=== PATIENT | female | born 1975 ===

== ENCOUNTER 2017-01-28 09:34 | Emergency (ER) | payer MEDICAID ==
[2017-01-28 09:42] VITALS: TEMP 97.8
[2017-01-28] MEDS ORDERED: Lidocaine 1% w Epi 1:100,000 Inj INJ STA (10:00)
--- NOTE | 2017-01-28 10:03 | C.PDOC ---
History Of Present Illness 41 y/o female presents to the ED with complaints of worsening mass and pain to right buttock x4 days. Pt reports new onset discharge from the area, has had "lump" in the area "for a while" but pain onset 4 days ago. (+) foul smelling discharge. Denies fever, chills, or any other associated symptoms. WORSENING MASS, PAIN AND NEW ONSET DC R BUTTOCK X 4 DAYS. PS W "LUMP" IN AREA "FOR A WHILE" BUT ONLY STARTED HURTING X 4 DAYS. +FOUL SMELLING DC. NO FEVER, OTHER ASSOC SX EXAM NONTOXIC NAD SKIN R BUTTOCK +ABSCESS LOWER MEDIAL ASPECT. NO PERIRECTAL, PILIONIDAL INVOLVEMENT. +LOCAL TEND W PERSIST FLUCTUANCE, LOCAL INDURATION. +MILD LOCAL ERYTHEMA REMAINDE RNEG Time Seen by Provider: 01/28/17 09:51 Chief Complaint (Nursing): Abnormal Skin Integrity History Per: Patient History/Exam Limitations: no limitations Onset/Duration Of Symptoms: Days Current Symptoms Are (Timing): Worse Quality Of Symptoms: Painful, Draining Severity: Moderate Recent travel outside of the [place]: No Past Medical History Reviewed: Historical Data, Nursing Documentation, Vital Signs Vital Signs: Last Vital Signs Temp 97.8 F 01/28/17 09:40 Pulse 83 01/28/17 09:40 Resp 20 01/28/17 09:40 BP 130/88 01/28/17 09:40 Pulse Ox 100 01/28/17 10:25 - Medical History PMH: Asthma, Depression Family History: States: Unknown Family Hx - Social History Hx Tobacco Use: No Hx Alcohol Use: No Hx Substance Use: No - Immunization History Hx Tetanus Toxoid Vaccination: No Hx Influenza Vaccination: No Hx Pneumococcal Vaccination: No Review Of Systems Constitutional: Negative for: Fever, Chills Skin: Positive for: Other (mass, pain and discharge from right buttock) Physical Exam - Physical Exam Appears: Non-toxic, No Acute Distress Skin: Warm, Dry, No Rash, Other (Right buttock (+) abscess to lower medial aspect. No perirectal, pilonidal involvement. (+) local tenderness with persistent fluctuance and local induration. (+) mild local erythema) Extremity: Normal ROM Extremity: Bilateral: Atraumatic Neurological/Psych: Oriented x3, Normal Speech, Normal Cognition ED Course And Treatment O2 Sat by Pulse Oximetry: 100 (room air) Pulse Ox Interpretation: Normal - Incision & Drainage Of Abscess Anesthesia: Lidocaine 2%, With Epi Prep Used: Betadine Procedure: Incised W/Scalpel Blade#: (11), Drained Pus, Irrigated Cavity W/ Saline, Probed To Break Up Loculations, Packed W/Gauze Disposition Counseled Patient/Family Regarding: Diagnosis, Need For Followup - Disposition Referrals: [facility] [Provider Group] Disposition: HOME/ ROUTINE Disposition Time: 10:34 Condition: GOOD Additional Instructions: RETURN 2 DAYS FOR WOUND REEVAL, PACKING CHANGE KEEP DRY MOTRIN/TYLENOL DIRECTED FOR PAIN NEEDED Instructions: Abscess Incision and Drainage (ED) Forms: [facility] (Wolof), Work Excuse - Clinical Impression Clinical Impression: Abscess - Scribe Statement The provider has reviewed the documentation as recorded by the sEteban Starr Provider Attestation: All medical record entries made by the Sukhwinderibbritney were at my direction and personally dictated by me. I have reviewed the chart and agree that the record accurately reflects my personal performance of the history, physical exam, medical decision making, and the department course for this patient. I have also personally directed, reviewed, and agree with the discharge instructions and disposition.
[2017-01-28] MEDS ORDERED: Lidocaine 2% w Epi 1:100,000 Inj IJ ONE (10:08)
[2017-01-28 11:17] VITALS: BP 118/70; PULSE 62; RESP 18; O2SAT 99
== END 2017-01-28 10:50 | disposition home or self-care (01) ==
LOC: C.ER 09:34
DX: L02.31 Cutaneous abscess of buttock (principal)
CPT/HCPCS: 10060; 96372; 99285; J1885

== ENCOUNTER 2017-01-30 08:01 | Emergency (ER) | payer MEDICAID ==
[2017-01-30 08:08] VITALS: BP 138/88; PULSE 71; RESP 16; TEMP 97.7; O2SAT 97
--- NOTE | 2017-01-30 08:52 | C.PDOC ---
History Of Present Illness 41-year-old female, presents to the emergency department for packing removal. Patient states she had an incision and drainage to left buttock a few days ago. Deneis any fevers, new symptoms. Time Seen by Provider: 01/30/17 08:08 Chief Complaint (Nursing): Abnormal Skin Integrity History Per: Patient History/Exam Limitations: no limitations Severity: Mild Past Medical History Reviewed: Historical Data, Nursing Documentation, Vital Signs Vital Signs: Last Vital Signs Temp 97.7 F 01/30/17 08:04 Pulse 71 01/30/17 08:04 Resp 16 01/30/17 08:04 BP 138/88 01/30/17 08:04 Pulse Ox 97 01/30/17 10:17 - Medical History PMH: Asthma, Depression Surgical History: No Surg Hx Family History: States: Unknown Family Hx - Social History Hx Tobacco Use: No Hx Alcohol Use: No Hx Substance Use: No - Immunization History Hx Tetanus Toxoid Vaccination: No Hx Influenza Vaccination: No Hx Pneumococcal Vaccination: No Review Of Systems Except As Marked, All Systems Reviewed And Found Negative. Constitutional: Negative for: Fever Respiratory: Negative for: Shortness of Breath Gastrointestinal: Negative for: Vomiting Neurological: Negative for: Weakness, Numbness Physical Exam - Physical Exam Appears: Non-toxic, No Acute Distress Skin: Warm, Dry, Other (ID site to left buttock, packing in place, no erythema, no drainage) Nose: Normal Oral Mucosa: Moist Lips: Normal Appearing Neck: Normal ROM Chest: Symmetrical Cardiovascular: Rhythm Regular, No Murmur Respiratory: Normal Breath Sounds, No Accessory Muscle Use Extremity: Normal ROM Neurological/Psych: Oriented x3 ED Course And Treatment O2 Sat by Pulse Oximetry: 97 Disposition Counseled Patient/Family Regarding: Studies Performed, Diagnosis, Need For Followup - Disposition Referrals: [facility] [Outside] [facility] [Outside] Disposition: HOME/ ROUTINE Disposition Time: 09:00 Condition: GOOD Instructions: Abscess (ED) Forms: [facility] (Micronesian) - POA Present On Arrival: None - Clinical Impression Clinical Impression: Wound check, abscess - Scribe Statement The provider has reviewed the documentation as recorded by the Scribe (Booker Gamboa) All medical record entries made by the Scribe were at my direction and personally dictated by me. I have reviewed the chart and agree that the record accurately reflects my personal performance of the history, physical exam, medical decision making, and the department course for this patient. I have also personally directed, reviewed, and agree with the discharge instructions and disposition.
== END 2017-01-30 09:10 | disposition home or self-care (01) ==
LOC: C.ER 08:01
DX: Z48.00 Encounter for change or removal of nonsurgical wound dressing (principal)

== ENCOUNTER 2017-08-02 14:13 | Emergency (ER) | payer MEDICAID, OTHER ==
[2017-08-02 15:43] VITALS: BMI 38.2
[2017-08-02 15:49] VITALS: RESP 18
[2017-08-02] MEDS ORDERED: Albuterol-Ipratrop 3 mg / 0.5 (3 ml) UD IH STA ×2 (16:32→16:35)
[2017-08-02] MEDS ORDERED: Albuterol-Ipratrop 3 mg / 0.5 (3 ml) UD ONE (16:54)
--- NOTE | 2017-08-02 17:04 | RAD ---
HISTORY: Cough COMPARISON: Chest x-ray performed 02/11/11 TECHNIQUE: Chest PA and lateral FINDINGS: Examination limited by habitus. LUNGS: Patchy left lower lobe atelectasis or infiltrate. Please note that chest x-ray has limited sensitivity for the detection of pulmonary masses. PLEURA: No significant pleural effusion identified. No definite pneumothorax . CARDIOVASCULAR: The cardiomediastinal silhouette appears within normal limits of size. OSSEOUS STRUCTURES: No acute osseous abnormality identified. VISUALIZED UPPER ABDOMEN: Unremarkable. OTHER FINDINGS: None. IMPRESSION: Patchy left lower lobe atelectasis or infiltrate.
--- NOTE | 2017-08-02 17:07 | C.PDOC ---
History Of Present Illness 41 yo female w/PMHx of asthma come in for evaluation of cold sx for past 3-4 days associated with nasal congestion, runny nose, productive cough with clear sputum. Pt reports, since yesterday noted asthma sx exacerbation with chest tightness, wheezing. Pt reports, " took Albuterol Neb tx at work and developed itchy rash to my arm". Pt sts, took Benadryl [employer] with mild improvement. Pt also reports, was taking OTC cold medication. Otherwise, pt denies high fever, chills , headache, dizziness. drooling, throat tightness or swelling, CP, palpitation, abd. pain, N/V/D, back pain, denies previous hx of allergy. Ambulate to Ed for evaluation, not in resp. distress. Time Seen by Provider: 08/02/17 16:13 Chief Complaint (Nursing): Allergic Reaction History Per: Patient Past Medical History Reviewed: Historical Data, Nursing Documentation, Vital Signs Vital Signs: Last Vital Signs Temp 97.8 F 08/02/17 20:22 Pulse 66 08/02/17 20:22 Resp 18 08/02/17 20:22 BP 135/76 08/02/17 20:22 Pulse Ox 98 08/02/17 21:30 - Medical History PMH: Asthma, Depression Family History: States: Unknown Family Hx - Social History Hx Tobacco Use: No Hx Alcohol Use: Yes Hx Substance Use: No - Immunization History Hx Tetanus Toxoid Vaccination: No Hx Influenza Vaccination: No Hx Pneumococcal Vaccination: No Review Of Systems Except As Marked, All Systems Reviewed And Found Negative. Constitutional: Negative for: Fever, Chills ENT: Positive for: Nose Discharge, Nose Congestion. Negative for: Ear Discharge , Mouth Swelling, Throat Pain, Throat Swelling Cardiovascular: Negative for: Chest Pain, Palpitations Respiratory: Positive for: Cough, Sputum, Wheezing Gastrointestinal: Negative for: Nausea, Vomiting, Abdominal Pain Genitourinary: Negative for: Dysuria, Frequency Musculoskeletal: Negative for: Neck Pain Skin: Positive for: Rash Neurological: Negative for: Altered Mental Status, Headache, Dizziness Physical Exam - Physical Exam Appears: Well, Non-toxic, No Acute Distress Skin: Normal Color, Warm, Dry, Rash (trace macular erythematous rash to B/L UEs. ) Head: Normacephalic Eye(s): bilateral: PERRL Ear(s): Bilateral: Normal Nose: No Flaring, Discharge (B/L clear) Oral Mucosa: Moist, No Drooling Tongue: No Swelling Lips: No Swelling Throat: No Drooling, Other (Uvula midline, no edema.) Neck: Trachea Midline, Supple Cardiovascular: Rhythm Regular, No Murmur, No JVD Respiratory: No Decreased Breath Sounds, No Accessory Muscle Use, No Stridor, Wheezing (diffuse expiratory B/L) Gastrointestinal/Abdominal: Soft, No Tenderness, No Distention, No Guarding Back: No CVA Tenderness Extremity: Normal ROM, No Deformity, No Swelling Neurological/Psych: Oriented x3, Normal Speech ED Course And Treatment O2 Sat by Pulse Oximetry: 98 Pulse Ox Interpretation: Normal Progress Note: Pt was OBS in ED for 6 hours and reports moderate improvement in sx,. On re-eval, pt is afebrile, hemodynamicaly stable. NOn-toxic. PulseOx 98 % RA. ENT: no acute findings. Uvula midline, no edmea. Neck: SUpple, (-) meningeal sign. Lungs: mod improvement in wheeizng B/L, BS equal B/L. Abd: benign. Neurologicaly intact. CXR review (+) early PNA. Pt advised and ref. to F/U with PMD, ENT In 2-3 days for re-eval. return if any new changes. Disposition Counseled Patient/Family Regarding: Studies Performed, Diagnosis, Need For Followup, Rx Given - Disposition Referrals: at [facility] [Outside] Disposition: HOME/ ROUTINE Disposition Time: 19:55 Condition: STABLE Additional Instructions: ENCOURAGE FLUIDS BEDREST FOR 2-3 DAYS\\\\TAKE MEDICATION PRESCRIBED FOLLOW UP WITH PMD IN 2-3 DAYS FOR RE-EVALUATION. RETURN TO ED IF ANY WORSENING OR NEW CHANGES. Prescriptions: Albuterol HFA [Ventolin HFA 90 mcg/actuation (8 g)] 1 puff IH Q6 #1 inhaler Cefdinir [Omnicef] 300 mg PO BID #14 cap Prednisone [Deltasone] 60 mg PO DAILY #9 tablet Promethazine/Codeine [Phenergan/Codeine Oral Syrup] 10 ml PO TID #90 ml Instructions: Asthma (ED), Pneumonia (ED) Forms: [facility] (Maori), Work Excuse - Clinical Impression Clinical Impression: Pneumonia, Asthma attack
[2017-08-02] MEDS ORDERED: Magnesium Sulfate 1 gm in D5W 1 GM/100 ML BAG IVPB ONE ×2 (18:30→18:53)
[2017-08-02] MEDS: Magnesium Sulfate 1 gm in D5W 1 GM/100 ML BAG IVPB SCH ×2 (18:30→18:52)
[2017-08-02 20:23] VITALS: BP 135/76; PULSE 66; TEMP 97.8
[2017-08-02 21:28] VITALS: O2SAT 98
== END 2017-08-02 21:47 | disposition home or self-care (01) ==
LOC: C.ER 14:13
DX: J18.9 Pneumonia, unspecified organism (principal); J45.909 Unspecified asthma, uncomplicated
CPT/HCPCS: 71046; 94640; 96365; 96366; 96367; 96375; 99284; J0696; J2930; J3475